=== PATIENT | male | born 1980 | race Two or more races ===

== ENCOUNTER → 2024-07-24 | Outpatient (CLI) | payer BC ==
[2024-07-24 09:05] LABS: Urine Bacteria None Seen /hpf (None Seen); Urine WBC None Seen /hpf (0 - 3)
[2024-07-24 09:08] LABS: Basophils # (auto) 0 10 ^3/uL (0-0.2); Basophils % (auto) 0.7 % (0.0-2.0); Eosinophils # (auto) 0.1 10 ^3/uL (0-0.8); Eosinophils % (auto) 2.7 % (0.0-7.0); Hematocrit 43.7 % (41.0-53.0); Hemoglobin 14.5 g/dL (13.5-17.5); Lymphocytes # (auto) 1.3 10 ^3/uL (0.4-5.4); Lymphocytes % (auto) 32.5 % (10.0-50.0); Mean Corpuscular Hgb Conc. 33.3 g/dL (32.0-36.0); Monocytes # (auto) 0.5 10 ^3/uL (0-1.3); Monocytes % (auto) 11.7 % (0.0-12.0); Neutrophils # (auto) 2.2 10 ^3/uL (1.6-8.6); Neutrophils % (auto) 52.4 % (37.0-80.0); Nucleated Red Blood Cells % 0.1 %; Platelet Count (auto) 154 10^3/uL (140-450); Red Blood Cells 4.69 10^6/uL (4.5-5.90); Red Cell Distribution Width 13.5 % (11.8-14.3); White Blood Cell 4.1 10^3/uL (4.4-10.8)
[2024-07-24 09:13] LABS: Urine Blood Negative /uL (Negative); Urine Clarity Clear (Clear); Urine Color Light-Yellow (Yellow); Urine Protein, UAD Negative (Negative); Urine Specific Gravity 1.022 (1.001-1.035); Urine Urobilinogen Normal (Negative); Urine pH 6.5 (5.0-9.0)
[2024-07-24 09:42] LABS: Chloride 107 mmol/L (98-107); Potassium 4.4 mmol/L (3.5-5.1); Sodium 142 mmol/L (136-145)
[2024-07-24 09:43] LABS: Anion Gap 4 (5-15); Calcium 10.1 mg/dL (8.7-10.4); Carbon Dioxide 31 mmol/L (20-31)
[2024-07-24 09:48] LABS: Glucose 101 mg/dL (74-106); Triglycerides 47 mg/dL (< 150)
[2024-07-24 09:49] LABS: BUN/Creatinine Ratio 10.5 (10.0-20.0); Blood Urea Nitrogen 13 mg/dL (9-23); LDL Cholesterol 94 mg/dL (< 100); Magnesium 1.9 mg/dL (1.6-2.6)
[2024-07-24 09:50] LABS: Cholesterol 186 mg/dL (< 200)
[2024-07-24 10:25] LABS: HDL Cholesterol 79 mg/dL (40-59)
[2024-07-24 11:31] LABS: % Iron Saturation 35.6 % (20-55)
[2024-07-24 11:35] LABS: Prostate Specific Antigen 0.89 ng/mL (0.0-4.0)
[2024-07-24 11:38] LABS: Free T4 (Free Thyroxine) 1.21 ng/dL (0.89-1.76)
[2024-07-24 11:39] LABS: Folate (Folic Acid) 12.91 ng/mL (>5.38)
== END | disposition home or self-care (01) ==
LOC: LAB 08:48
PROVIDERS: ATTEND Internal Medicine
DX: I10 Essential (primary) hypertension (principal); E04.1 Nontoxic single thyroid nodule; E78.2 Mixed hyperlipidemia; F41.9 Anxiety disorder, unspecified
CPT/HCPCS: 36415; 80048; 80061; 81001; 82306; 82607; 82746; 83036; 83540; 83550; 83735; 84153; 84403; 84439; 84443; 85025